=== PATIENT | female | born 1950 | race Caucasian/White ===

== ENCOUNTER → 2017-07-22 | Outpatient (CLI) | payer MEDICARE ==
--- NOTE | 2017-07-22 10:29 | Diagnostic Imaging Report ---
EXAM: DXA BONE DENSITY INDICATIONS: Not provided. COMPARISON: None. FINDINGS: Right femoral neck femur bone mineral density (BMD) (g/cm2):0.630 Femur T-score (standard deviation relative to young adult mean BMD):-2 Femur Z-score (standard deviation relative to age-matched control group):-0.2 Lumbar bone mineral density (BMD) (g/cm2):1.118 Lumbar T-score (standard deviation relative to young adult mean BMD): 0.6 Lumbar Z-score (standard deviation relative to age-matched control group):2.7 CONCLUSION: WHO bone mineral classification: Low bone mass (osteopenia). 10 year major osteoporotic fracture risk is 7%, with hip fracture risk is 0.3%. RECOMMENDATIONS: Normal \T\ Osteopenia:Calcium supplementation, daily multiple vitamins, and adequate exercise as preventive measures against osteoporosis Osteoporosis \T\ Severe Osteoporosis:In addition to the above, pharmacologic therapy. Dictated by: Taj Espinal M.D. on 07/22/2017 at 10:38 Electronically approved by: Taj Espinal M.D. on 07/22/2017 at 10:38
--- NOTE | 2017-07-30 08:25 | Diagnostic Imaging Report ---
#[id number] - MGSCRBIL #BILATERAL FIRST EVER DIGITAL SCREENING MAMMOGRAM WITH CAD: 07/22/2017 No prior exams were available for comparison. Current study contains 4 films. The tissue of both breasts is predominantly fatty. Current study was also evaluated with a Computer Aided Detection (CAD) system. There are benign vascular calcifications and scattered calcifications in both breasts. No significant masses, calcifications, or other findings are seen in either breast. IMPRESSION: BENIGN There is no mammographic evidence of malignancy. A 1 year screening mammogram is recommended. The patient will be notified by letter of the results. Miguel Gandhi Jr., D.O. cw/:07/29/2017 12:53:42 Entry Level Drafter: Myriam HODGES(Jeremy)(Beto), [facility] letter sent: Normal Exam Mammogram BI-RADS: 2 Benign
== END ==
LOC: MAMMO 09:18
PROVIDERS: ATTEND Family Medicine
DX: Z12.31 Encounter for screening mammogram for malignant neoplasm of breast (principal); Z13.820 Encounter for screening for osteoporosis
CPT/HCPCS: 77080; G0202; 77067

== ENCOUNTER → 2018-07-31 | Outpatient (CLI) | payer MEDICARE | LOC: MAMMO 07:35 | PROVIDERS: ATTEND Family Medicine | DX: Z12.31 Encounter for screening mammogram for malignant neoplasm of breast (principal) | CPT/HCPCS: 77067 ==